=== PATIENT | male | born 1975 | race Caucasian/White ===

== ENCOUNTER 2023-07-06 01:19 | Inpatient (IN) | payer BC ==
[2023-07-06 01:57] LABS: BASOPHILS ABSOLUTE AUTO 0.05 K/uL (0.00-0.20); BASOPHILS PERCENT AUTO 0.5 % (0.0-2.0); EOSINOPHILS ABSOLUTE AUTO 0.13 K/uL (0.00-0.50); EOSINOPHILS PERCENT AUTO 1.2 % (0.0-5.0); HEMOGLOBIN 14.4 g/dL (13.1-16.8); LYMPHOCYTES PERCENT AUTO 11.9 % (10.0-50.0); MEAN CORPUSCULAR HEMOGLOBIN 32.4 pg (28.2-33.3); MEAN CORPUSCULAR HGB CONC 34.3 g/dL (31.7-36.0); MEAN CORPUSCULAR VOLUME 94.4 fL (84.0-98.0); MONOCYTES ABSOLUTE AUTO 1.33 K/uL (0.00-1.00); MONOCYTES PERCENT AUTO 12.1 % (2.0-14.0); NEUTROPHILS ABSOLUTE AUTO 8.15 K/uL (1.40-7.00); NEUTROPHILS PERCENT AUTO 74.3 % (45.0-80.0); PLATELET COUNT,PLT 256 K/uL (150-350); RED BLOOD CELL COUNT 4.45 M/uL (4.33-5.41)
[2023-07-06] MEDS ORDERED: Naloxone 0.4 MG/ML SDV IVPUSH PRN (01:59)
[2023-07-06] MEDS: Lactated Ringers 1,000 ML IV SCH ×2 (02:04→06:13)
[2023-07-06] MEDS: fentaNYL 50 MCG/ML SDV IVPUSH ONE (02:04)
[2023-07-06 02:24] LABS: ETHANOL BLOOD MEDICAL 0.11 g/dL (0.000-0.080)
[2023-07-06 02:32] LABS: INR 1.2 (0.9-1.1); PROTHROMBIN TIME 12.3 SEC (9.0-11.1)
[2023-07-06 02:33] LABS: ALANINE AMINOTRANSFERASE,ALT 18 U/L (12-78); ALBUMIN 3.7 g/dL (3.4-5.0); ALKALINE PHOSPHATASE 128 IU/L (46-116); AMYLASE 189 U/L (25-115); ASPARTATE AMNIOTRANSFERASE,AST 11 U/L (15-37); BILIRUBIN TOTAL 0.4 mg/dL (0.2-1.0); BLOOD UREA NITROGEN,BUN 7 mg/dL (7-18); CARBON DIOXIDE,CO2 25.4 mmol/L (21.0-32.0); CHLORIDE,CL 98 mmol/L (98-107); CREATININE 0.71 mg/dL (0.51-1.17); GLUCOSE RANDOM 182 mg/dL (70-99); POTASSIUM,K 3.7 mmol/L (3.5-5.1); PROTEIN TOTAL,TP 7.3 g/dL (6.4-8.2); SODIUM,NA 134 mmol/L (136-145)
[2023-07-06 02:34] LABS: ANION GAP 14.3 meq/L (7-15); ESTIMATED GFR 115 mL/min (>=60)
[2023-07-06 02:59] LABS: LIPASE 583 U/L (16-77)
[2023-07-06] MEDS ORDERED: Glucagon,Human Recombinant 1 MG Vial IM PRN (03:45)
[2023-07-06] MEDS ORDERED: 50% Dextrose in Water 50 ML Syringe IVPUSH PRN (03:45)
[2023-07-06] MEDS: Nicotine 14 MG/24 Hr Patch TRDERM SCH (04:08)
[2023-07-06] MEDS: Sodium Chloride 0.9% 10 ML Syringe FLUSH PRN (04:08)
[2023-07-06] MEDS: Ondansetron 4 MG/2 ML SDV IVPUSH PRN (04:09)
[2023-07-06] MEDS: fentaNYL 50 MCG/ML SDV IVPUSH PRN (04:09)
[2023-07-06 07:34] LABS: BASOPHILS ABSOLUTE AUTO 0.04 K/uL (0.00-0.20); BASOPHILS PERCENT AUTO 0.4 % (0.0-2.0); EOSINOPHILS ABSOLUTE AUTO 0.22 K/uL (0.00-0.50); EOSINOPHILS PERCENT AUTO 2.2 % (0.0-5.0); HEMATOCRIT 39.8 % (39.0-49.0); HEMOGLOBIN 13.7 g/dL (13.1-16.8); LYMPHOCYTES ABSOLUTE AUTO 1.53 K/uL (0.50-3.50); MEAN CORPUSCULAR HGB CONC 34.4 g/dL (31.7-36.0); MEAN CORPUSCULAR VOLUME 95.9 fL (84.0-98.0); MONOCYTES ABSOLUTE AUTO 1.43 K/uL (0.00-1.00); NEUTROPHILS PERCENT AUTO 68.4 % (45.0-80.0); PLATELET COUNT,PLT 244 K/uL (150-350); RED BLOOD CELL COUNT 4.15 M/uL (4.33-5.41); RED CELL DISTRIBUTION WIDTH 13.9 % (11.2-14.1); WHITE BLOOD CELL COUNT,WBC 10.2 K/uL (4.0-10.2)
[2023-07-06] MEDS: Insulin Lispro 100 Units/ML 3 ML Vial SUBCUT SCH (07:36)
[2023-07-06] MEDS: Omeprazole 20 MG Cap.CR PO SCH (07:56)
[2023-07-06] MEDS: FLUoxetine 20 MG Cap PO SCH (07:56)
[2023-07-06 08:04] LABS: ALBUMIN 3.3 g/dL (3.4-5.0); BILIRUBIN TOTAL 0.6 mg/dL (0.2-1.0); CALCIUM 8.3 mg/dL (8.5-10.1); CREATININE 0.67 mg/dL (0.51-1.17); EST CRCL DRUG DOSING (CG) 142.25 mL/min; MAGNESIUM 1.8 mg/dL (1.8-2.4); PROTEIN TOTAL,TP 6.6 g/dL (6.4-8.2)
[2023-07-07 08:12] LABS: BASOPHILS ABSOLUTE AUTO 0.08 K/uL (0.00-0.20); BASOPHILS PERCENT AUTO 0.9 % (0.0-2.0); EOSINOPHILS ABSOLUTE AUTO 0.28 K/uL (0.00-0.50); EOSINOPHILS PERCENT AUTO 3.2 % (0.0-5.0); HEMATOCRIT 42.9 % (39.0-49.0); HEMOGLOBIN 14.2 g/dL (13.1-16.8); LYMPHOCYTES ABSOLUTE AUTO 1.48 K/uL (0.50-3.50); LYMPHOCYTES PERCENT AUTO 16.8 % (10.0-50.0); MEAN CORPUSCULAR HEMOGLOBIN 32.3 pg (28.2-33.3); MEAN CORPUSCULAR HGB CONC 33.1 g/dL (31.7-36.0); MEAN CORPUSCULAR VOLUME 97.5 fL (84.0-98.0); MONOCYTES ABSOLUTE AUTO 1.29 K/uL (0.00-1.00); MONOCYTES PERCENT AUTO 14.6 % (2.0-14.0); NEUTROPHILS PERCENT AUTO 64.5 % (45.0-80.0); PLATELET COUNT,PLT 249 K/uL (150-350); RED CELL DISTRIBUTION WIDTH 14.1 % (11.2-14.1); WHITE BLOOD CELL COUNT,WBC 8.8 K/uL (4.0-10.2)
[2023-07-07 08:35] LABS: ALBUMIN 3.1 g/dL (3.4-5.0); ANION GAP 7.3 meq/L (7-15); BILIRUBIN TOTAL 1.1 mg/dL (0.2-1.0); CALCIUM 8.5 mg/dL (8.5-10.1); CARBON DIOXIDE,CO2 28.7 mmol/L (21.0-32.0); CREATININE 0.87 mg/dL (0.51-1.17); EST CRCL DRUG DOSING (CG) 109.55 mL/min; POTASSIUM,K 4.1 mmol/L (3.5-5.1); PROTEIN TOTAL,TP 6.6 g/dL (6.4-8.2)
[2023-07-07 08:39] LABS: INR 1.4 (0.9-1.1); PROTHROMBIN TIME 13.7 SEC (9.0-11.1)
[2023-07-07] MEDS: Lactated Ringers 1,000 ML IV SCH (14:23)
[2023-07-07] MEDS: LORazepam 2 MG/ML SDV IVPUSH PRN (23:15)
[2023-07-08 08:01] LABS: BASOPHILS ABSOLUTE AUTO 0.06 K/uL (0.00-0.20); BASOPHILS PERCENT AUTO 0.8 % (0.0-2.0); EOSINOPHILS ABSOLUTE AUTO 0.28 K/uL (0.00-0.50); EOSINOPHILS PERCENT AUTO 3.7 % (0.0-5.0); HEMATOCRIT 41.1 % (39.0-49.0); HEMOGLOBIN 13.8 g/dL (13.1-16.8); LYMPHOCYTES ABSOLUTE AUTO 1.17 K/uL (0.50-3.50); LYMPHOCYTES PERCENT AUTO 15.4 % (10.0-50.0); MEAN CORPUSCULAR HEMOGLOBIN 32.6 pg (28.2-33.3); MEAN CORPUSCULAR HGB CONC 33.6 g/dL (31.7-36.0); MEAN CORPUSCULAR VOLUME 97.2 fL (84.0-98.0); MONOCYTES ABSOLUTE AUTO 1.39 K/uL (0.00-1.00); MONOCYTES PERCENT AUTO 18.3 % (2.0-14.0); NEUTROPHILS ABSOLUTE AUTO 4.69 K/uL (1.40-7.00); NEUTROPHILS PERCENT AUTO 61.8 % (45.0-80.0); PLATELET COUNT,PLT 241 K/uL (150-350); RED BLOOD CELL COUNT 4.23 M/uL (4.33-5.41); RED CELL DISTRIBUTION WIDTH 13.8 % (11.2-14.1); WHITE BLOOD CELL COUNT,WBC 7.6 K/uL (4.0-10.2)
[2023-07-08 08:25] LABS: ALBUMIN 2.8 g/dL (3.4-5.0); ANION GAP 6.3 meq/L (7-15); CALCIUM 8.4 mg/dL (8.5-10.1); CARBON DIOXIDE,CO2 28.7 mmol/L (21.0-32.0); CREATININE 0.76 mg/dL (0.51-1.17); EST CRCL DRUG DOSING (CG) 125.4 mL/min; POTASSIUM,K 4.3 mmol/L (3.5-5.1); PROTEIN TOTAL,TP 6.1 g/dL (6.4-8.2)
[2023-07-08 08:38] LABS: AMYLASE 214 U/L (25-115); LIPASE 390 U/L (16-77)
[2023-07-08] MEDS ORDERED: Morphine 2 MG/ML SYRINGE SUBCUT PRN (13:59)
[2023-07-08] MEDS ORDERED: Acetaminophen 325 MG Tab PO PRN (14:00)
[2023-07-08] MEDS: Pantoprazole 40 MG Tab.CR PO ONE (14:20)
[2023-07-08] MEDS: traMADol 50 MG Tab PO SCH (14:20)
[2023-07-08] MEDS: Insulin Lispro 100 Units/ML 3 ML Vial SUBCUT SCH (17:14)
[2023-07-08] MEDS: LORazepam 1 MG Tab PO PRN (22:41)
[2023-07-08] MEDS: Morphine 2 MG/ML SYRINGE IVPUSH PRN (22:41)
[2023-07-08] MEDS: rOPINIRole 1 MG Tab PO PRN (23:10)
[2023-07-09] MEDS: traZODone 50 MG Tab PO ONE (03:12)
[2023-07-09 07:35] LABS: BASOPHILS ABSOLUTE AUTO 0.04 K/uL (0.00-0.20); BASOPHILS PERCENT AUTO 0.5 % (0.0-2.0); EOSINOPHILS ABSOLUTE AUTO 0.39 K/uL (0.00-0.50); HEMATOCRIT 41.8 % (39.0-49.0); HEMOGLOBIN 13.9 g/dL (13.1-16.8); LYMPHOCYTES ABSOLUTE AUTO 1.67 K/uL (0.50-3.50); LYMPHOCYTES PERCENT AUTO 21.4 % (10.0-50.0); MEAN CORPUSCULAR HEMOGLOBIN 32.3 pg (28.2-33.3); MEAN CORPUSCULAR HGB CONC 33.3 g/dL (31.7-36.0); MEAN CORPUSCULAR VOLUME 97.2 fL (84.0-98.0); MONOCYTES ABSOLUTE AUTO 1.36 K/uL (0.00-1.00); MONOCYTES PERCENT AUTO 17.4 % (2.0-14.0); NEUTROPHILS ABSOLUTE AUTO 4.35 K/uL (1.40-7.00); NEUTROPHILS PERCENT AUTO 55.7 % (45.0-80.0); PLATELET COUNT,PLT 257 K/uL (150-350); RED CELL DISTRIBUTION WIDTH 13.9 % (11.2-14.1); WHITE BLOOD CELL COUNT,WBC 7.8 K/uL (4.0-10.2)
[2023-07-09] MEDS: Pantoprazole 40 MG Tab.CR PO ONE (07:45)
[2023-07-09 07:56] LABS: ANION GAP 7.8 meq/L (7-15); BILIRUBIN TOTAL 0.4 mg/dL (0.2-1.0); CALCIUM 8.1 mg/dL (8.5-10.1); CARBON DIOXIDE,CO2 27.2 mmol/L (21.0-32.0); CREATININE 0.78 mg/dL (0.51-1.17); EST CRCL DRUG DOSING (CG) 122.19 mL/min; PROTEIN TOTAL,TP 6.5 g/dL (6.4-8.2)
[2023-07-09 08:05] LABS: AMYLASE 270 U/L (25-115)
[2023-07-09 08:06] LABS: LIPASE 548 U/L (16-77)
== END 2023-07-09 14:45 | disposition home or self-care (01) | DRG 282 ==
LOC: LL.ED 01:19 → LL.MS 03:00
PROVIDERS: ADMIT Physician Assistant; ATTEND Physician Assistant
DX: K85.20 Alcohol induced acute pancreatitis without necrosis or infection (principal); F10.939 Alcohol use, unspecified with withdrawal, unspecified; E11.9 Type 2 diabetes mellitus without complications; F17.210 Nicotine dependence, cigarettes, uncomplicated; G25.81 Restless legs syndrome; E78.00 Pure hypercholesterolemia, unspecified; K21.9 Gastro-esophageal reflux disease without esophagitis; F41.9 Anxiety disorder, unspecified; F32.A Depression, unspecified; K86.3 Pseudocyst of pancreas; Z79.84 Long term (current) use of oral hypoglycemic drugs; Z79.899 Other long term (current) drug therapy
CPT/HCPCS: 36415; 80053; 80307; 82150; 82947; 83036; 83605; 83690; 83735; 84450; 84460; 85025; 85610; 99223; 99232; 99233; 99238; A9270-GY; J2060; J2270; J2405; J3010; J3490; J7120

== ENCOUNTER 2023-07-19 01:59 | Emergency (ER) | payer BC ==
[2023-07-19] MEDS ORDERED: Naloxone 0.4 MG/ML SDV IVPUSH PRN (02:01)
[2023-07-19] MEDS: Lactated Ringers 1,000 ML IV SCH (02:02)
[2023-07-19] MEDS: fentaNYL 50 MCG/ML SDV IVPUSH ONE ×2 (02:07→03:28)
[2023-07-19] MEDS: Sodium Chloride 0.9% 10 ML Syringe FLUSH PRN (02:08)
[2023-07-19 02:21] LABS: BASOPHILS ABSOLUTE AUTO 0.04 K/uL (0.00-0.20); BASOPHILS PERCENT AUTO 0.4 % (0.0-2.0); HEMATOCRIT 44.8 % (39.0-49.0); HEMOGLOBIN 15.1 g/dL (13.1-16.8); LYMPHOCYTES PERCENT AUTO 10.4 % (10.0-50.0); MEAN CORPUSCULAR HEMOGLOBIN 32.1 pg (28.2-33.3); MEAN CORPUSCULAR HGB CONC 33.7 g/dL (31.7-36.0); MEAN CORPUSCULAR VOLUME 95.3 fL (84.0-98.0); MONOCYTES ABSOLUTE AUTO 1.11 K/uL (0.00-1.00); MONOCYTES PERCENT AUTO 11.6 % (2.0-14.0); NEUTROPHILS ABSOLUTE AUTO 7.33 K/uL (1.40-7.00); NEUTROPHILS PERCENT AUTO 76.6 % (45.0-80.0); PLATELET COUNT,PLT 377 K/uL (150-350); RED CELL DISTRIBUTION WIDTH 14.6 % (11.2-14.1); WHITE BLOOD CELL COUNT,WBC 9.6 K/uL (4.0-10.2)
[2023-07-19 02:40] LABS: ALANINE AMINOTRANSFERASE,ALT 11 U/L (12-78); ALBUMIN 3.3 g/dL (3.4-5.0); ALKALINE PHOSPHATASE 112 IU/L (46-116); ANION GAP 7.3 meq/L (7-15); ASPARTATE AMNIOTRANSFERASE,AST 15 U/L (15-37); BILIRUBIN TOTAL 0.4 mg/dL (0.2-1.0); BLOOD UREA NITROGEN,BUN 5 mg/dL (7-18); CALCIUM 8.4 mg/dL (8.5-10.1); CARBON DIOXIDE,CO2 29.7 mmol/L (21.0-32.0); CHLORIDE,CL 101 mmol/L (98-107); CREATININE 0.64 mg/dL (0.51-1.17); ETHANOL BLOOD MEDICAL 0.059 g/dL (0.000-0.080); GLUCOSE RANDOM 134 mg/dL (70-99); LIPASE 167 U/L (16-77); POTASSIUM,K 4.4 mmol/L (3.5-5.1); SODIUM,NA 138 mmol/L (136-145)
[2023-07-19 02:44] LABS: ESTIMATED GFR 118 mL/min (>=60)
[2023-07-19] MEDS: Ondansetron 4 MG/2 ML SDV IVPUSH ONE (03:29)
[2023-07-19] MEDS: Take Home: Ondansetron 4 MG Tab.DIS, 5 Tab Pack PO ONE (03:42)
== END 2023-07-19 03:50 | disposition home or self-care (01) ==
LOC: LL.ED 01:59
DX: R10.12 Left upper quadrant pain (principal); E11.9 Type 2 diabetes mellitus without complications; F17.210 Nicotine dependence, cigarettes, uncomplicated; Z79.899 Other long term (current) drug therapy; Z79.84 Long term (current) use of oral hypoglycemic drugs
CPT/HCPCS: 36415; 80053; 80307; 83690; 85025; 96374; 96375; 96376; 99284; J2405; J3010; J7120; Q0162; J3490

== ENCOUNTER 2023-12-17 16:25 | Emergency (ER) | payer BC ==
[2023-12-17] MEDS: Ketorolac 30 MG/ML SDV IM ONE (18:24)
[2023-12-17] MEDS: Take Home: Cyclobenzaprine 10 MG Tab, 4 Tab Pack PO ONE (19:02)
== END 2023-12-17 19:00 | disposition home or self-care (01) ==
LOC: LL.ED 16:25
DX: M54.42 Lumbago with sciatica, left side (principal); M48.061 Spinal stenosis, lumbar region without neurogenic claudication; E11.9 Type 2 diabetes mellitus without complications; Z79.84 Long term (current) use of oral hypoglycemic drugs; Z79.899 Other long term (current) drug therapy
CPT/HCPCS: 72148; 96372; 99283; A9270; J1885; 99284

== ENCOUNTER 2024-12-12 14:04 | Emergency (ER) | payer BC ==
[2024-12-12 14:29] VITALS: BP 133/92; PULSE 116
== END 2024-12-12 14:19 ==
LOC: LL.ED 14:04
DX: L03.115 Cellulitis of right lower limb (principal); E11.9 Type 2 diabetes mellitus without complications; Z79.84 Long term (current) use of oral hypoglycemic drugs; Z79.899 Other long term (current) drug therapy
CPT/HCPCS: 99283